=== PATIENT | female | born 1945 ===

== ENCOUNTER 2017-02-21 14:12 | Emergency (ER) | payer MEDICARE ==
[2017-02-21 14:19] VITALS: BMI 18.3
[2017-02-21 14:38] VITALS: BP 119/75; PULSE 88; RESP 18; TEMP 97.9; O2SAT 98
--- NOTE | 2017-02-21 15:34 | CT ---
PROCEDURE: CT scan of brain dated 02/21/2017. HISTORY: Headache COMPARISON: Comparison made with prior CT scan of the brain dated 02/08/2013. TECHNIQUE: Axial computed tomography images were obtained through the head/brain without intravenous contrast. Radiation dose: Total exam DLP = 842.62 mGy-cm. This CT exam was performed using one or more of the following dose reduction techniques: Automated exposure control, adjustment of the mA and/or kV according to patient size, and/or use of iterative reconstruction technique. FINDINGS: HEMORRHAGE: No acute parenchymal, subarachnoid or extra-axial hemorrhage. BRAIN: There appears to be some very minimal chronic periventricular white matter ischemic changes. No evidence of large acute infarct. No obvious parenchymal nor extra-axial mass or collection seen on this noncontrast exam. Moderate generalized volume loss. Minimal calcifications vascular calcification left carotid siphon VENTRICLES: No obstructive hydrocephalus. CALVARIUM: There are no acute calvarial fractures PARANASAL SINUSES: Unremarkable as visualized. No significant inflammatory changes. MASTOID AIR CELLS: Unremarkable as visualized. No inflammatory changes. OTHER FINDINGS: None. IMPRESSION: No acute intracranial hemorrhage. Suspect minimal chronic periventricular white matter ischemic changes. Moderate generalized volume loss.
--- NOTE | 2017-02-21 15:46 | C.PDOC ---
History Of Present Illness Pt c/o frontal headache. Time Seen by Provider: 02/21/17 14:30 Chief Complaint (Nursing): Headache History Per: Patient Onset/Duration Of Symptoms: Days (1), Intermittent Episodes, Gradual Current Symptoms Are (Timing): Still Present Severity: Moderate Quality: "Pain" Associated Symptoms: Nausea Additional History Per: Prior Records Past Medical History Reviewed: Historical Data, Nursing Documentation, Vital Signs Vital Signs: Last Vital Signs Temp 97.9 F 02/21/17 14:37 Pulse 88 02/21/17 14:37 Resp 18 02/21/17 14:37 BP 119/75 02/21/17 14:37 Pulse Ox 98 02/21/17 14:37 - Medical History PMH: HTN - [facility] Procedures CLOSURE SKIN & SUBCUTANEOUS NEC (08/09/13) TETANUS TOXOID ADMINIST (08/09/13) Family History: States: Unknown Family Hx - Social History Hx Tobacco Use: Yes Hx Alcohol Use: No Hx Substance Use: No - Immunization History Hx Tetanus Toxoid Vaccination: Yes (08/09/13) Hx Influenza Vaccination: No Hx Pneumococcal Vaccination: No Review Of Systems Except As Marked, All Systems Reviewed And Found Negative. Constitutional: Negative for: Fever, Weakness ENT: Positive for: Nose Congestion (?). Negative for: Ear Pain, Ear Discharge, Throat Pain Cardiovascular: Negative for: Chest Pain Respiratory: Negative for: Shortness of Breath Gastrointestinal: Negative for: Vomiting, Abdominal Pain Neurological: Positive for: Headache. Negative for: Weakness, Incoordination, Change in Speech, Confusion, Seizures, Altered Mental Status Physical Exam - Physical Exam Appears: Non-toxic, No Acute Distress Skin: Normal Color, Warm, Dry, No Rash Head: Atraumatic, Normacephalic Eye(s): bilateral: Normal Inspection, PERRL, EOMI Ear(s): Bilateral: Normal Oral Mucosa: Moist, No Drooling, No Trismus Neck: Normal ROM, Supple Cardiovascular: Rhythm Regular Respiratory: Normal Breath Sounds, No Accessory Muscle Use Gastrointestinal/Abdominal: Soft, No Tenderness Back: No CVA Tenderness Extremity: Normal ROM Neurological/Psych: Oriented x3, Normal Speech, Normal Cognition, Normal Cranial Nerves, No Cerebellar Signs, Normal Motor, Normal Sensation ED Course And Treatment O2 Sat by Pulse Oximetry: 98 Pulse Ox Interpretation: Normal - CT Scan/US CT head Other Rad Studies (CT/US): Read By Radiologist, Radiology Report Reviewed CT/US Interpretation: IMPRESSION: No acute intracranial hemorrhage. Suspect minimal chronic periventricular white matter ischemic changes. Moderate generalized volume loss. Progress - Interventions Interventions:: Observation - Medications Administered Oral: Acetaminophen - Data Reviewed Data Reviewed: Diagnostic imaging, Old records - Patient Status Patient status: Completely improved - Continuity of Care Discussed patient case with:: Patient, ED Nurse - Patient Plan Patient Plan: Discharge, F/U with PCP, Continue present meds Disposition Counseled Patient/Family Regarding: Studies Performed, Diagnosis, Need For Followup, Rx Given - Disposition Referrals: Shanna Grace MD [Medical Doctor] - Disposition: HOME/ ROUTINE Disposition Time: 15:46 Condition: IMPROVED Additional Instructions: Follow up with your doctor this week. Return to the ER if you develop vomiting, severe headache, weakness, trouble seeing, walking or talking, worsening of symptoms or if you have any other concerns. Prescriptions: Ibuprofen [Motrin Tab] 400 mg PO TID PRN #15 tab PRN Reason: Pain, Moderate (4-7) Instructions: Acute Headache (ED) Forms: [employer] (Russian) Print Language: BOLIVIAN - Clinical Impression Clinical Impression: Headache
== END 2017-02-21 15:52 | disposition home or self-care (01) ==
LOC: C.ER 14:12
DX: R51 Headache (principal)